=== PATIENT | female | born 1975 | race Caucasian/White ===

== ENCOUNTER 2019-12-28 05:22 | Emergency (ER) | payer OTHER ==
[~2019-12-28] VITALS: Ht 160 cm; Wt 59.0 kg
[2019-12-28] MEDS ORDERED: LEVOTHYROXINE125 MCG (05:52)
[2019-12-28] MEDS ORDERED: IVERMECTIN3 MG (05:52)
== END 2019-12-28 11:23 | disposition home or self-care (01) ==
LOC: ER 05:22
DX: D69.49 Other primary thrombocytopenia (principal); Z03.818 Encounter for observation for suspected exposure to other biological agents ruled out; R50.9 Fever, unspecified; R51.9 Headache, unspecified; R53.81 Other malaise

== ENCOUNTER 2020-02-06 18:03 | Emergency (ER) | payer OTHER ==
[~2020-02-06] VITALS: Ht 160 cm; Wt 59.0 kg
[~2020-02-06 18:03] MED LIST: IVERMECTIN3 MG; LEVOTHYROXINE125 MCG
== END 2020-02-06 21:52 | disposition home or self-care (01) ==
LOC: ER 18:03
DX: S01.122A Laceration with foreign body of left eyelid and periocular area, initial encounter (principal); W18.09XA Striking against other object with subsequent fall, initial encounter; Y93.89 Activity, other specified; Y92.830 Public park as the place of occurrence of the external cause; Y99.8 Other external cause status

== ENCOUNTER 2020-02-11 09:47 | Emergency (ER) | payer OTHER ==
[~2020-02-11] VITALS: Ht 162.6 cm; Wt 75.3 kg
== END 2020-02-11 12:08 | disposition home or self-care (01) ==
LOC: ER 09:47
DX: R20.2 Paresthesia of skin (principal); Z48.02 Encounter for removal of sutures

== ENCOUNTER 2023-10-10 15:09 | Outpatient (CLI) | payer OTHER | END 2023-10-10 15:19 | disposition home or self-care (01) | LOC: SONOGRAMA 15:09 | DX: E03.9 Hypothyroidism, unspecified (principal) ==

== ENCOUNTER 2025-01-13 14:06 | Outpatient (CLI) | payer OTHER | END 2025-01-13 14:07 | disposition home or self-care (01) | LOC: RAD 14:06 | PROVIDERS: ATTEND Orthopaedic Surgery | DX: M25.511 Pain in right shoulder (principal) ==